=== PATIENT | female | born 1985 | race Caucasian/White ===

== ENCOUNTER → 2017-06-16 | Outpatient (CLI) | payer MEDICAID ==
[2017-06-16 18:07] LABS: MEAN CORPUSCULAR HEMOGLOBIN 25.6 pg (27.0-33.0); MEAN CORPUSCULAR HGB CONC 30.8 g/dl (32.0-36.5); MEAN CORPUSCULAR VOLUME 83.2 fl (80.0-96.0); PLATELET COUNT, AUTOMATED 178 10^3/uL (150-450); RED CELL DISTRIBUTION WIDTH 13.5 % (11.5-14.5); WHITE BLOOD COUNT 8.3 10^3/uL (4.0-10.0)
== END ==
LOC: M WUC 11:31
PROVIDERS: ATTEND Advanced Practice Midwife
DX: Z34.83 Encounter for supervision of other normal pregnancy, third trimester (principal); Z3A.00 Weeks of gestation of pregnancy not specified

== ENCOUNTER → 2017-07-24 | Outpatient (REF) | payer MEDICAID | LOC: M LAB REF 16:54 | PROVIDERS: ATTEND Advanced Practice Midwife | DX: Z34.83 Encounter for supervision of other normal pregnancy, third trimester (principal) ==

== ENCOUNTER 2017-08-13 15:20 | Inpatient (IN) | payer MEDICAID ==
[2017-08-13] MEDS ORDERED: OXYTOCIN 30 UNITS IN 0.9% NaCl 500ML IV BAG (J2590) As Ordered (16:32)
[2017-08-13 16:35] LABS: HEMATOCRIT 34.8 % (36.0-47.0); HEMOGLOBIN 11.5 g/dl (12.0-16.0); MEAN CORPUSCULAR HEMOGLOBIN 26.8 pg (27.0-33.0); MEAN CORPUSCULAR VOLUME 81.1 fl (80.0-96.0); PLATELET COUNT, AUTOMATED 178 10^3/uL (150-450); RED BLOOD COUNT 4.29 10^6/uL (4.00-5.40); WHITE BLOOD COUNT 9.7 10^3/uL (4.0-10.0)
[2017-08-13] MEDS ORDERED: ACETAMINOPHEN 500 MG TAB PO (17:15)
[2017-08-13] MEDS ORDERED: METHYLERGONOVINE MALEATE 0.2 MG TAB PO (17:15)
[2017-08-13] MEDS: LIDOCAINE 1% MDV INJ 50 ML VIAL INFIL (17:15)
[2017-08-13] MEDS ORDERED: DIBUCAINE 1% OINTMENT 30GM TOP (17:15)
[2017-08-13] MEDS ORDERED: MEASLES,MUMPS,RUBELLA VACCINE INJ (MMR-II) (90707) SC (17:15)
[2017-08-13] MEDS: IBUPROFEN 800 MG TAB PO (17:19)
[2017-08-13] MEDS: OXYTOCIN DRIP 30 UNITS in APPROPRIATE DILUENT 1 EA IV (17:19)
[2017-08-13] MEDS: DOCUSATE SODIUM 100 MG CAP PO (20:52)
[2017-08-14] MEDS: IBUPROFEN 800 MG TAB PO ×2 (06:04→20:10)
[2017-08-14] MEDS: PRENATAL VITAMINS CHEWABLE TABLET PO (10:25)
[2017-08-14] MEDS: INFLUENZA QUADRIVALENT PF VACCINE 0.5ML SYRINGE (90686) IM (10:26)
[2017-08-14] MEDS: ADACEL/BOOSTRIX VACCINE (DIPHTH/PERTUSS/ACELL/TETANUS)0.5ML SYR (90715) IM (10:27)
[2017-08-14] MEDS: RHOGAM 300 MCG (1500 IU) INJ (J2790) IM (19:23)
[2017-08-15] MEDS: PRENATAL VITAMINS CHEWABLE TABLET PO (08:12)
[2017-08-15] MEDS: IBUPROFEN 800 MG TAB PO (08:13)
== END 2017-08-15 11:55 | disposition home or self-care (01) | DRG 560 ==
LOC: M LDO 15:20 → M LDI 16:32 → M OBS 18:37
PROVIDERS: Advanced Practice Midwife
PROC: 10E0XZZ Delivery of Products of Conception, External Approach (ICD-10-PCS; principal; 2017-08-13)
PROC: 10907ZC Drainage of Amniotic Fluid, Therapeutic from Products of Conception, Via Natural or Artificial Opening (ICD-10-PCS; 2017-08-13)
PROC: 0HQ9XZZ Repair Perineum Skin, External Approach (ICD-10-PCS; 2017-08-13)
DX: O70.0 First degree perineal laceration during delivery (principal); Z37.0 Single live birth; Z3A.38 38 weeks gestation of pregnancy